=== PATIENT | male | born 1985 | race Caucasian/White ===

== ENCOUNTER → 2019-03-13 10:32 | Outpatient (BNVA) | payer OTHER, SELFPAY | PROVIDERS: Visit Provider Family Medicine | DX: J02.9 Acute pharyngitis, unspecified (principal) | CPT/HCPCS: 87081; 87880 ==

== ENCOUNTER 2021-01-06 12:19 | Outpatient (CLI) | payer SELFPAY ==
[2021-01-06 12:53] VITALS: BP 153/99; PULSE 88; RESP 20; TEMP 36.3; O2SAT 95; BMI 39.6
[2021-01-06 13:30] VITALS: BP 166/107; PULSE 84; RESP 20; TEMP 36.3; O2SAT 93
[2021-01-06 14:31] VITALS: BP 172/109; PULSE 84; RESP 18; TEMP 36.8; O2SAT 92
--- NOTE | 2021-01-06 14:31 | PC.NURSE ---
Patient encouraged to have blood pressure checked. States he does not have a primary care physician and has thought about going to someone in [place]. Instructed on complications that can occur with uncontrolled blood pressure. Patient verbalized understanding.
== END 2021-01-06 12:20 | disposition home or self-care (01) ==
LOC: OPS 12:22
PROVIDERS: Visit Provider Family Medicine
DX: U07.1 COVID-19 (principal)
CPT/HCPCS: 96365